=== PATIENT | male | born 1960 ===

== ENCOUNTER 2023-04-10 10:15 | Inpatient (IN) | payer OTHER ==
[~2023-04-10] VITALS: Ht 177.8 cm; Wt 114.3 kg
[2023-04-10] MEDS ORDERED: TOPROL XL25 M1 PO (12:52)
[2023-04-10] MEDS ORDERED: CHLORTHALIDONE25 MG PO (12:53)
[2023-04-10] MEDS ORDERED: CLON PO (12:53)
[2023-04-10] MEDS ORDERED: COZAAR100 MG PO (12:53)
[2023-04-10] MEDS ORDERED: [UNRECOGNIZED DRUG - OTHER] PO (12:54)
[2023-04-16] MEDS ORDERED: CLONIDINE HCL0.2 MG (09:50)
[2023-04-16] MEDS ORDERED: NIFEDIPINE ER30 M1 (09:50)
[2023-04-17] MEDS ORDERED: ELIQUIS2.5 MG PO (17:22)
[2023-04-17] MEDS ORDERED: DUI500 PO (17:22)
[2023-04-17] MEDS ORDERED: PERCOCET 5-3251 EACH PO (17:22)
== END 2023-04-17 18:42 | DRG 470 ==
LOC: O/R 04-15 06:52 → SURG 04-15 06:52 → RECOVERY 04-15 10:15 → SURH 04-15 10:15 → SURG 04-15 14:09
PROVIDERS: ADMIT Orthopaedic Surgery; ATTEND Orthopaedic Surgery
PROC: 0SRD0J9 Replacement of Left Knee Joint with Synthetic Substitute, Cemented, Open Approach (ICD-10-PCS; principal; 2023-04-15 14:00)
DX: M17.12 Unilateral primary osteoarthritis, left knee (principal); D62 Acute posthemorrhagic anemia; M22.12 Recurrent subluxation of patella, left knee; M65.862 Other synovitis and tenosynovitis, left lower leg; I10 Essential (primary) hypertension